=== PATIENT | female | born 1985 | race Hispanic/Latino ===

== ENCOUNTER 2018-05-23 16:56 | Emergency (ER) | payer BC, OTHER ==
[2018-05-23 17:23] LABS: #Eosinphils 0.1 thou/uL (0.0-0.7); #Monocytes 0.5 thou/uL (0.11-0.59); #Neutrophils 5.6 thou/uL (1.40-6.50); %Basophils 0.5 % (0.0-1.0); %Eosinophils 0.8 % (0.0-10.0); %Lymphocytes 24.5 % (21.0-51.0); %Monocytes 6.2 % (0.0-10.0); %Neutrophils 68.1 % (42.0-75.0); Mean Corpuscular HGB CONC 33.3 g/dL (32.0-36.0); Mean Corpuscular Hemoglobin 27.6 pg (27.0-31.0); Mean Corpuscular Volume 82.8 fL (78.0-98.0); Mean Platelet Volume 6.3 fL (7.4-10.4); Platelet Count 290 thou/uL (130-400); RBC Distribution Width 13.3 % (11.5-14.5); Red Blood Cell (RBC) Count 4.37 mill/uL (4.20-5.40); White Blood Cell (WBC) Count 8.2 thou/uL (4.8-10.8)
[2018-05-23 17:32] LABS: Bilirubin Negative (Negative); Blood, Urine Small (Negative); Clarity CLEAR (Clear); Glucose, Urine (Dipstick) Negative (Negative); Leukocyte Trace (Negative); Nitrite Negative (Negative); Protein, Urine (Dipstick) Negative (Neg-Trace); Specific Gravity, Urine 1.023 (1.002-1.036); pH, Urine 6.5 (5.0-9.0)
[2018-05-23 17:34] LABS: Bacteria/HPF None Seen HPF (None Seen); Hyaline Casts/LPF 0-3 HYALINE CAST LPF (0-3 Hyaline); Pathc Cast-AUWi Flag 0.58 (0-2.49); Squamous Epithelial 0-3 HPF (0-3); WBC/HPF 0-3 HPF (0-3)
[2018-05-23 17:43] LABS: ALT (SGPT) 23 U/L (8-55); AST (SGOT) 22 U/L (5-34); Alkaline Phosphatase 69 U/L (40-150); Anion Gap 10 mmol/L (10-20); BUN (Urea Nitrogen) 9 mg/dL (7.0-18.7); Bilirubin, Total 0.4 mg/dL (0.2-1.2); Calc. Creatinine Clearance 0 mL/min (70-130); Calcium 9.1 mg/dL (7.8-10.44); Carbon Dioxide 24 mmol/L (22-29); Chloride 104 mmol/L (98-107); Estimated GFR-MDRD Greater than 90; Globulin 3.4 g/dL (2.4-3.5); Glucose 102 mg/dL (70-105); Potassium 3.5 mmol/L (3.5-5.1); Protein, Total 7.4 g/dL (6.0-8.3); Sodium 134 mmol/L (136-145)
[2018-05-23] MEDS ORDERED: Lidocaine Viscous Sol 2% 15 ml UD Cup ONE ×2 (18:30→18:31)
[2018-05-23] MEDS ORDERED: Mag-Al 1200 mg/1200 mg/30 ML UDCUP ONE (18:30)
--- NOTE | 2018-05-23 18:59 | ULT ---
RIGHT UPPER QUADRANT ULTRASOUND: 05/23/18 INDICATION: Epigastric abdominal pain. FINDINGS: There is mild layered gallbladder sludge within the gallbladder. No gallbladder wall thickening or pe richolecystic fluid is evident. No sonographic Navarro's sign reported. Common bile duct measures 3 mm . Visualized liver, right kidney and pancreas appear within normal limits. The right kidney measures 10.6 cm in length. IMPRESSION: Mild gallbladder sludge without sonographic evidence of acute cholecystitis. POS: [facility]
== END 2018-05-23 20:08 | disposition home or self-care (01) ==
LOC: ERS 16:56
DX: O99.611 Diseases of the digestive system complicating pregnancy, first trimester (principal); K82.8 Other specified diseases of gallbladder; Z3A.10 10 weeks gestation of pregnancy
CPT/HCPCS: 36415; 76705; 80053; 81003; 81015; 84702; 85025; 96372

== ENCOUNTER 2018-12-02 11:44 | Day surgery (SDC) | payer MEDICAID, OTHER ==
[2018-12-02 13:02] VITALS: BP 110/70; TEMP 97.9; BMI 30.2
--- NOTE | 2018-12-02 14:54 | PRG ---
DATE OF SERVICE: 12/02/2018 PRIMARY OB: Radha Frausto MD CHIEF COMPLAINT: Abdominal pain. HISTORY OF PRESENT ILLNESS: The patient is a 33-year-old, G3, P2 female with an intrauterine at 39 weeks, who is presenting with uterine contractions that she said began about 1 o'clock this morning. The patient is reporting that they have been consistent and are occurring about every 5 minutes and has come in for evaluation. The patient report that she is having some mucousy bloody show. Denies any leakage of fluid. The patient denies fever, fall, headache, chest pain, shortness of breath, nausea, vomiting, diarrhea, constipation, hip problems, knee problems, muscle weakness, any new rashes, vaginal bleeding, urinary urgency. PAST MEDICAL HISTORY: Negative. PAST SURGICAL HISTORY: Negative. ALLERGIES: NO KNOWN DRUG ALLERGIES. MEDICATIONS: vitamins. SOCIAL HISTORY: Denies drug, alcohol, tobacco use. OB LABORATORY DATA: Glucola 89. Hepatitis B surface antigen is negative. HIV is nonreactive. She is rubella immune. GBS is negative. Syphilis is negative. Type and screen is O positive. Antibody screen is negative. REVIEW OF SYSTEMS: Per HPI. PHYSICAL EXAMINATION: VITAL SIGNS: Blood pressure is 108/69, heart rate of 90, respiratory rate of 18, saturating 98% on room air, temperature 97.9. GENERAL: She appears to be in no acute distress. She is alert, oriented, cooperative, and pleasant to interact with. HEAD: Normocephalic, atraumatic. LUNGS: Clear to auscultation bilaterally. HEART: Regular rate and rhythm. ABDOMEN: Gravid and soft, nontender. EXTREMITIES: Nontender, nonedematous. GENITOURINARY: Cervix is 1, 70, and -2 station per nursing staff. heart tracing performed for uterine contractions. Baseline is noted to be in the 140s with moderate long-term variability, positive 15 x 15 accelerations, no decelerations. Contractions are occurring about every 5 to 7 minutes. ASSESSMENT AND PLAN: The patient is a 33-year-old, 3, para 2, with an intrauterine at 39 weeks, here for evaluation of labor. The patient has a reassuring fetus and reactive NST. She will go walking for an hour or two and then get her cervix re-examined for evidence of cervical change. Should there not be any cervical change, the patient will likely be discharged home, was given good pain control or declining treatment. Otherwise, patient will be admitted, if she is showing clear evidence of labor progression and Dr. Frausto, will be notified. Job ID: [id number]
[2018-12-02] MEDS ORDERED: Promethazine HCl 25 MG/ML VIAL IM PRN (15:14)
[2018-12-02] MEDS ORDERED: Morphine 10 MG/ML VIAL IM SCH (15:15)
== END 2018-12-02 16:29 | disposition home or self-care (01) ==
LOC: L&D/OP 11:44
PROVIDERS: ATTEND Family Medicine
DX: O47.1 False labor at or after 37 completed weeks of gestation (principal); Z3A.39 39 weeks gestation of pregnancy; Z79.899 Other long term (current) drug therapy
CPT/HCPCS: 96372; 99283; J2270; J2550

== ENCOUNTER 2018-12-03 08:06 | Inpatient (IN) | payer OTHER, SELFPAY ==
[2018-12-03] MEDS ORDERED: Acetaminophen 500 MG TAB PO PRN (09:12)
[2018-12-03] MEDS ORDERED: Lidocaine 1% (PF) 30 ML VIAL SC PRN (09:12)
[2018-12-03] MEDS ORDERED: Butorphanol Tartrate 1 MG/ML VIAL SLOW IVP PRN (09:12)
[2018-12-03] MEDS ORDERED: Promethazine HCl 25 MG/ML VIAL IM PRN ×2 (09:12→11:03)
[2018-12-03] MEDS ORDERED: Ondansetron PF 4 MG/2 ML Vial IVP PRN ×2 (09:12→11:03)
[2018-12-03] MEDS ORDERED: Meperidine HCl/PF 25 MG/ML VIAL IM/IV PRN (09:12)
[2018-12-03] MEDS ORDERED: NS / Oxytocin 40 units/1000ml 1,000 ML IV PRN (09:12)
[2018-12-03] MEDS ORDERED: HYDROcodone/Acetaminophen 5/325 mg Tablet PO PRN ×2 (09:30→15:54)
[2018-12-03] MEDS ORDERED: Misoprostol 200 MCG TAB PR PRN (09:30)
[2018-12-03] MEDS ORDERED: Ibuprofen 800 MG TAB PO PRN (09:30)
[2018-12-03] MEDS ORDERED: Methylergonovine 0.2 MG/ML VIAL IM PRN (09:30)
[2018-12-03] MEDS ORDERED: Carboprost 250 MCG/ML AMP IM PRN (09:30)
[2018-12-03 09:41] LABS: Mean Corpuscular HGB CONC 28.6 g/dL (32.0-36.0); Mean Corpuscular Hemoglobin 24.3 pg (27.0-31.0); Mean Corpuscular Volume 84.8 fL (78.0-98.0); Platelet Count 275 thou/uL (130-400); RBC Distribution Width 15.3 % (11.5-14.5); Red Blood Cell (RBC) Count 4.95 mill/uL (4.20-5.40)
[2018-12-03] MEDS ORDERED: Fentanyl 4 mcg/Bup 0.1% Cadd 100 ML ONE (10:14)
[2018-12-03] MEDS: Lactated Ringer's 1,000 ML IV SCH ×2 (10:19→10:42)
[2018-12-03 10:20] LABS: HBSAg Index 0.31 S/CO (0-0.99); Hep B Surf Ag Non-Reactive S/CO (NonReactive)
[2018-12-03 10:21] LABS: Syphilis Antibody Nonreactive (Nonreactive); Syphilis Antibody Index 0.05 S/CO (<1.00 Non-Reactive)
[2018-12-03] MEDS ORDERED: Bupivacaine 0.5% 10 ML VIAL ONE (10:38)
[2018-12-03] MEDS ORDERED: Fentanyl 100 MCG/2 ML VIAL ONE (10:38)
[2018-12-03] MEDS ORDERED: Lactated Ringer's 500 ML IV PRN (11:03)
[2018-12-03] MEDS ORDERED: Fentanyl 100 MCG/2 ML VIAL I-THECAL ONE (11:03)
[2018-12-03] MEDS ORDERED: Acetaminophen 325 MG TAB PO PRN (11:03)
[2018-12-03] MEDS ORDERED: ePHEDrine/0.9% NaCl/PF SYRINGE 50 mg/10 ml SLOW IVP PRN (11:03)
[2018-12-03] MEDS ORDERED: Bupivacaine 0.25% 10 ML VIAL EPIDURAL ONE (11:03)
[2018-12-03] MEDS ORDERED: Eucerin (Mineral Oil/Petrolatum,White) 30 gm Jar TOP PRN (11:03)
[2018-12-03] MEDS ORDERED: diphenhydrAMINE 50 MG/ML VIAL IVP PRN (11:03)
[2018-12-03] MEDS ORDERED: Naloxone HCl 0.4 mg/ml Vial IVP PRN ×2 (11:03)
[2018-12-03] MEDS ORDERED: Fentanyl 4 mcg/Bupivacaine 0.1% Cassette 100 ML EPIDURAL SCH (11:15)
[2018-12-03] MEDS ORDERED: Communication Order-Pharmacy FS SCH (11:15)
[2018-12-03 15:54] VITALS: BMI 35.4
[2018-12-03] MEDS ORDERED: NS / Oxytocin 40 units/1000ml 1,000 ML IV SCH (15:54)
[2018-12-03] MEDS ORDERED: Milk Of Magnesia 30 ML UDCUP PO PRN (15:54)
[2018-12-03] MEDS ORDERED: Bisacodyl 10 MG SUPP PR PRN (15:54)
[2018-12-03] MEDS ORDERED: Lanolin Ointment 7 GM TUBE TOP PRN (15:54)
--- NOTE | 2018-12-03 21:53 | OP ---
DATE OF PROCEDURE: 12/03/2018 PREOPERATIVE DIAGNOSIS: Term intrauterine . POSTOPERATIVE DIAGNOSIS: Term intrauterine as well as a first-degree perineal laceration. PROCEDURE PERFORMED: Normal spontaneous vaginal delivery and laceration repair. ANESTHESIA: Epidural. QUANTITATIVE BLOOD LOSS: 97 mL. BRIEF DELIVERY SUMMARY: This is a 33-year-old G3, now P3, who presented in active labor. She progressed well to complete and pushing. She delivered a live female infant head away. There was a loose nuchal cord x1 which was reduced prior to delivery of the shoulders. Shoulders and body easily followed and the infant was placed on mother's abdomen. The umbilical cord was doubly clamped and cut, and cord blood was collected and sent for analysis. Placenta delivered spontaneously and intact with a three-vessel umbilical cord. There was a first-degree perineal laceration which was repaired in standard running fashion using 3-0 Vicryl suture under epidural anesthesia with excellent hemostasis. Mom and baby were left with the nurse in excellent condition attempting to breastfeed. Job ID: [id number]
[2018-12-04] MEDS: Docusate Calcium (SURFAK) 240 MG CAP PO SCH ×2 (07:50→09:00)
[2018-12-04] MEDS: Ferrous Sulfate 325 MG TAB PO SCH ×3 (07:50→15:27)
[2018-12-04] MEDS: Ibuprofen 800 MG TAB PO SCH ×2 (07:51→14:57)
[2018-12-04] MEDS ORDERED: HYDROcodone/Acetaminophen 5/325 mg Tablet PO PRN (07:59)
[2018-12-04] MEDS ORDERED: Adacel (T-DAP) 0.5 ML SYRINGE IM ONE (09:00)
[2018-12-04 11:40] VITALS: BP 113/69; TEMP 98
--- NOTE | 2018-12-04 14:25 | PDOC.PP ---
Post Progress Note Post Day #: 1 Subjective: Feeling well. well. No c/o. PO intake tolerated: yes Flatus: yes Ambulation: yes Vital Signs (12 hours) Temp Pulse Resp BP Pulse Ox 12/04/18 11:39 98.0 F 91 20 113/69 12/04/18 08:22 98.2 F 73 20 94/54 L 97 12/04/18 04:00 98.2 F 77 18 101/52 L Weight Weight 164 lb - Physical Examination General: NAD Cardiovascular: no m/r/g, RRR Respiratory: clear to auscultation bilaterally, non-labored breathing Abdominal: + bowel sounds, lochia, no distention, appropriately TTP Result Diagrams: 12/03/18 09:29 Additional Labs: Post Labs Blood Type O POSITIVE 12/03/18 09:26 Hep Bs Antigen Non-Reactive S/CO (NonReactive) 12/03/18 09:26 (1) Vaginal delivery Code(s): O80 - ENCOUNTER FOR FULL-TERM UNCOMPLICATED DELIVERY Status: Acute - Assessment/Plan Routine PP care D/C home
== END 2018-12-04 16:20 | disposition home or self-care (01) | DRG 807 ==
LOC: L&D/OP 08:06 → L&D 09:25 → 3SW 17:05
PROVIDERS: ADMIT Family Medicine; ATTEND Family Medicine
PROC: 10E0XZZ Delivery of Products of Conception, External Approach (ICD-10-PCS; principal; 2018-12-03)
PROC: 0HQ9XZZ Repair Perineum Skin, External Approach (ICD-10-PCS; 2018-12-03)
DX: O69.81X0 Labor and delivery complicated by cord around neck, without compression, not applicable or unspecified (principal); Z37.0 Single live birth; O70.0 First degree perineal laceration during delivery; Z3A.39 39 weeks gestation of pregnancy
CPT/HCPCS: 36415; 51702; 85027; 86780; 86850; 86900; 86901; 87340; 96372; 99283; 99285; J0595; J2270; J2550; J3010; J3490